=== PATIENT | male | born 1970 | race Caucasian/White ===

== ENCOUNTER 2017-06-17 03:24 | Emergency (ER) | payer MEDICAID ==
[~2017-06-17] VITALS: Ht 177.8 cm; Wt 67.5 kg
[~2017-06-17 03:24] MED LIST: CLIN300C3
[2017-06-17 03:26] VITALS: BP 127/87
[2017-06-17] MEDS ORDERED: HYDROcodone/APAP 5/325 TABLET ONE (03:44)
[2017-06-17] MEDS ORDERED: HYDROcodone/APAP 5/325 TABLET PO ONE (04:00)
== END 2017-06-17 04:04 | disposition home or self-care (01) ==
LOC: ED 03:58
DX: K02.9 Dental caries, unspecified (principal); K01.1 Impacted teeth
CPT/HCPCS: 99283

== ENCOUNTER 2017-08-17 07:21 | Emergency (ER) | payer MEDICAID ==
[~2017-08-17] VITALS: Ht 177.8 cm; Wt 65.2 kg
[2017-08-17 07:22] VITALS: BP 136/85
[2017-08-17] MEDS ORDERED: HYDROcodone/APAP 5/325 TABLET PO ONE (08:00)
[2017-08-17] MEDS ORDERED: OXYcodone/APAP 5/325MG TABLET ONE (08:20)
[2017-08-17] MEDS ORDERED: HYDROcodone/APAP 5/325 TABLET ONE (08:23)
== END 2017-08-17 08:31 | disposition home or self-care (01) ==
LOC: ED 08:15
DX: K08.89 Other specified disorders of teeth and supporting structures (principal); F17.210 Nicotine dependence, cigarettes, uncomplicated
CPT/HCPCS: 99283

== ENCOUNTER 2018-02-21 16:31 | Emergency (ER) | payer MEDICAID ==
[~2018-02-21] VITALS: Ht 177.8 cm; Wt 52.0 kg
[2018-02-21 16:34] VITALS: BP 120/83
[2018-02-21] MEDS ORDERED: METHOCARBAMOL 750 MG TABLET ONE (16:48)
[2018-02-21] MEDS ORDERED: METHOCARBAMOL 750 MG TABLET PO ONE (17:00)
[2018-02-21 17:08] LABS: ANION GAP 5 mmol/L (5-15); CALCIUM 8.3 mg/dL (8.5-10.1); CHLORIDE 108 mmol/L (98-107)
[2018-02-21 17:12] LABS: CREATINE KINASE, TOTAL 296 U/L (39-308); CREATININE 1.05 mg/dL (0.7-1.3)
== END 2018-02-21 18:30 | disposition home or self-care (01) ==
LOC: ED 17:28
DX: M62.830 Muscle spasm of back (principal); M54.2 Cervicalgia; F17.200 Nicotine dependence, unspecified, uncomplicated; Z88.0 Allergy status to penicillin
CPT/HCPCS: 36415; 80048; 82550; 99284; 99406

== ENCOUNTER 2019-02-14 07:11 | Emergency (ER) | payer MEDICAID ==
[~2019-02-14] VITALS: Ht 25.4 cm; Wt 61.0 kg
[2019-02-14 07:14] VITALS: BP 105/72
== END 2019-02-14 09:53 | disposition home or self-care (01) ==
LOC: ED 09:28
DX: K04.7 Periapical abscess without sinus (principal); F17.200 Nicotine dependence, unspecified, uncomplicated
CPT/HCPCS: 41800; 99283

== ENCOUNTER 2020-01-11 01:22 | Emergency (ER) | payer MEDICAID ==
[~2020-01-11] VITALS: Ht 177.8 cm; Wt 63.9 kg
[2020-01-11 02:23] LABS: BASOPHILS # (AUTO) 0.09 x10^3/uL (0-0.1); BASOPHILS % (AUTO) 1 % (0-1); EOSINOPHILS # (AUTO) 0.13 x10^3/uL (0-0.4); EOSINOPHILS % (AUTO) 1 % (1-7); LYMPHOCYTES # (AUTO) 2.11 x10^3/uL (1-3.4); LYMPHOCYTES % (AUTO) 23 % (22-44); MD NO; MEAN CORPUSCULAR HEMOGLOBIN 28.2 pg (27.5-34.5); MEAN CORPUSCULAR HGB CONC 33.6 g/dL (33.2-36.2); MEAN PLATELET VOLUME 8.1 fL (7.4-10.4); MONOCYTES # (AUTO) 1.13 x10^3/uL (0.2-0.8); MONOCYTES % (AUTO) 12 % (2-9); NEUTROPHILS # (AUTO) 5.83 x10^3/uL (1.8-6.8); NEUTROPHILS % (AUTO) 63 % (42-75); PLATELET COUNT 224 x10^3/uL (130-400); RED BLOOD COUNT 5.02 x10^6/uL (4.38-5.82); RED CELL DISTRIBUTION WIDTH 13.8 % (9.4-14.8)
[2020-01-11] MEDS ORDERED: HYDROmorphone 1 MG/ML, 1ML INJ IM ONE (02:30)
[2020-01-11 02:32] LABS: ALBUMIN 3.4 g/dL (3.4-5.0); ANION GAP 5 mmol/L (5-15); CALCIUM 8.4 mg/dL (8.5-10.1); CHLORIDE 106 mmol/L (98-107); CREATININE 0.86 mg/dL (0.7-1.3)
[2020-01-11] MEDS ORDERED: HYDROmorphone 1 MG/ML, 1ML INJ ONE (02:34)
[2020-01-11 02:35] LABS: TROPONIN I < 0.015 ng/mL (0.000-0.045)
[2020-01-11 03:58] VITALS: BP 110/73
== END 2020-01-11 04:01 | disposition home or self-care (01) ==
LOC: ED 03:30
DX: R09.1 Pleurisy (principal); R07.89 Other chest pain; F15.10 Other stimulant abuse, uncomplicated; J98.11 Atelectasis; I45.9 Conduction disorder, unspecified; I21.9 Acute myocardial infarction, unspecified; F17.210 Nicotine dependence, cigarettes, uncomplicated; Z72.9 Problem related to lifestyle, unspecified
CPT/HCPCS: 36415; 71046; 80048; 82040; 84484; 85025; 93005; 96372; 99285; 99406; J1170

== ENCOUNTER 2020-09-22 12:42 | Emergency (ER) | payer MEDICAID ==
[2020-09-22] MEDS ORDERED: CODE BLUE RESPONSE XX ONE (12:45)
--- NOTE | 2020-09-22 13:29 | NUR ---
LATE NOTE D/T PT CARE: PT ARRIVED BY [facility] AT 1242. PT TRANSFERRED TO ER [facility]. PT ALERT SITTING ON GURNEY WITH RESP ABOUT 30. THIS RN RECEIVED REPORT FROM [facility]. MEDICAL OFFICE ASSISTANT INSTRUCTOR AT BEDSIDE FOR EKG, PT BECOMING UNCOMPLIANT WITH CARE. PT THEN BECAME UNRESPONSIVE AND NOT BREATHING. CODE [facility] CALLED AND CPR STARTED AT 1249. PLEASE REFER TO PAPER CODE SHEET FOR CODE INFORMATION. PT PRONOUNED AT [address] NIETO. TICKET COLLECTOR OR USHER CALLED, PT ACCEPTED. [employer] CALLED.
--- NOTE | 2020-09-22 13:35 | NUR ---
Pt's sister Cata Locke arrived at ER. Dr. Vu in to speak with sister and her . Emotional support provided, SW at bedside.
--- NOTE | 2020-09-22 14:49 | NUR ---
PT TRANSFERRED TO [employer] [place], [place]
[2020-09-22] MEDS ORDERED: IBUPROFEN 200 MG TABLET ONE (15:27)
[2020-09-22] MEDS ORDERED: EPINEPHRINE SYRINGE 0.1 MG/ML, 10ML ONE (16:02)
== END 2020-09-22 14:51 | disposition expired ==
LOC: ED 13:00
DX: I46.9 Cardiac arrest, cause unspecified (principal); I50.9 Heart failure, unspecified; R00.1 Bradycardia, unspecified; I45.10 Unspecified right bundle-branch block; R06.02 Shortness of breath
CPT/HCPCS: 31500; 92950; 93005; 99285